=== PATIENT | male | born 1965 | race Caucasian/White ===

== ENCOUNTER 2016-10-01 13:54 | Emergency (ER) | payer OTHER ==
--- NOTE | 2016-10-01 14:35 | REP ---
LEFT ANKLE SERIES, COMPLETE: 10/01/2016 CLINICAL HISTORY: Trauma. Rolled ankle yesterday. No prior studies available. FINDINGS: Four views show soft tissue swelling anterolateral left ankle. There is soft tissue swelling on the lateral view anterior to the ankle with a small spur on the tibial plafond on the lateral view. The ankle mortise joint is symmetric and preserved with no talar dome osteochondral defect. Tiny spurs at the inferior margin of the medial malleolus and medial talar margin of the mortise joint. Subtalar joints are intact. No heel spurs. Talonavicular and calcaneocuboid joints are intact. At the lateral margin of the distal tibia, there is a tiny lucent vertical line that may be representing a nondisplaced cortical fracture of that bone seen on the mortise view and the medial oblique which rotates that posterior margin of the tibia peripherally. I do not see other acute bony finding suggested. IMPRESSION: 1. Soft tissue swelling anterolateral aspect of the ankle and a question of a nondisplaced avulsion off the peripheral margin of the lateral aspect of the distal tibia. Please see arrows I placed on the images. The mortise joint is intact. No other significant finding. Signed by Carrillo Ryan MD 10/01/2016 04:47 P
--- NOTE | 2016-10-01 14:57 | EDDOCDS ---
Physician Documentation [facility] Name: Jake Ward Age: 51 yrs Sex: Male : 1965 Arrival Date: 10/01/2016 Time: 13:54 Bed Triage 1 Private MD: NO PRIMARY PHYSICIAN, . Disposition: 10/01/16 14:44 Discharged to Home/Self Care. Impression: Nondisplaced fracture of lateral condyle of left tibia. - Condition is Stable. - Discharge Instructions: Crutch Use, Dcyx-en-Ycyg, Stirrup Ankle Brace, Dqkc-gz-Bkeu, Ankle Fracture, Xzot-vl-Uvzb. - Medication Reconciliation, Local Pharmacy Hours form. - Follow up: Orthopaedics, [facility]; When: Call to arrange an appointment; Reason: Further diagnostic work-up, Recheck today's complaints, Continuance of care. - Problem is new. - Symptoms are unchanged. Historical: - Allergies: no known allergies; - Home Meds: 1. none - PMHx: none; - PSHx: none; - Social history: Smoking status: Patient uses tobacco products, current every day smoker. No barriers to communication noted, The patient speaks fluent Swedish. - Family history: Not pertinent. - : The pt / caregiver states he / she is not on anticoagulants. Home medication list is obtained from the patient. - Exposure Risk Screening:: None identified. Vital Signs: 10/01 13:55 BP 147 / 87; Pulse 74; Resp 18; Temp 98.7; Pulse Ox 100% ; Weight 81.65 kg / 180.01 elp lbs; Height 6 ft. 1 in. (185.42 cm); Pain 7/10; 13:55 Body Mass Index 23.75 (81.65 kg, 185.42 cm) elp MDM: 14:04 Ankle, Complete Ordered. EDMS 14:42 Apply Air Cast to Patient. ordered. btw 14:43 Financial registration complete. lg Signatures: Dispatcher [employer] EDMS Suri Gambino, Lyle Reg lg Ivonne Hardin, RN RN Jackson Manley PA PA btw Conner, Teresa, RN RN ttb The chart was reviewed and I authenticate all verbal orders and agree with the evaluation and treatment provided.Corrections: (The following items were deleted from the chart) 14:45 14:42 Crutches ordered. btw jb5 MTDD
--- NOTE | 2016-10-01 14:57 | EDDOCDS ---
Nurse's Notes [facility] Name: Jake Ward Age: 51 yrs Sex: Male : 1965 Arrival Date: 10/01/2016 Time: 13:54 Bed Triage 1 Private MD: NO PRIMARY PHYSICIAN, . Diagnosis: Nondisplaced fracture of lateral condyle of left tibia Presentation: 10/01 13:59 Presenting complaint: Patient states: approx 1730 yesterday moving trusses on ice, jjr slipped rolling left ankle and trusses fell on top of ankle. The patients lower extremity appears normal on examination. Adult Sepsis Screening: The patient does not have new or worsening altered mentation. Patient's respiratory rate is less than 22. Systolic blood pressure is greater than 100. Patient has a qSOFA score of 0- Negative Sepsis Screen. Suicide/Homicide risk assessment- the patient denies having any suicidal and/or homicidal ideations and does not present with any other emotional, behavioral or mental health complaints. Status: Patient is not a sales service route manager or dependent. Transition of care: patient was not received from another setting of care. 13:59 Acuity: WILMA Level 4 jjr 13:59 Method Of Arrival: Walkin/Carried/Asstd jjr Triage Assessment: 14:00 General: Appears in no apparent distress. Pain: Location: left lateral ankle. HIV jjr screening NA for this visit Offered previously. Musculoskeletal: No deformity noted Reports pain in left lateral ankle. Historical: - Allergies: no known allergies; - Home Meds: 1. none - PMHx: none; - PSHx: none; - Social history: Smoking status: Patient uses tobacco products, current every day smoker. No barriers to communication noted, The patient speaks fluent Indonesian. - Family history: Not pertinent. - : The pt / caregiver states he / she is not on anticoagulants. Home medication list is obtained from the patient. - Exposure Risk Screening:: None identified. Screenin:45 Screening information is obtained from the patient. Fall risk: No risks identified. ttb Assistance ADL's: requires no assistance with activities of daily living. Abuse/DV Screen: The patient / caregiver reports he/she is: not in a situation that causes fear, pain or injury. Nutritional screening: No deficits noted. Advance Directives: Currently, there is no health care proxy. home support is adequate. Assessment: 14:45 General: Appears in no apparent distress, well nourished, well groomed, Behavior is ttb appropriate for age, cooperative, pleasant. Pain: Location: left leg and left lateral ankle. Neurological: Level of Consciousness is awake, alert. Cardiovascular: Chest pain is denied. Respiratory: No deficits noted. Airway is patent. Derm: Skin is normal. Musculoskeletal: Capillary refill is brisk Signs and Symptoms of Compartment Syndrome: no signs of compartment syndrome Reports pain in left lateral ankle. 14:45 General: pt states he does not need crutches : has 3 pairs at home. Air cast placed per ttb orders.. 14:50 General: pt refused WC to car. . ttb Vital Signs: 13:55 BP 147 / 87; Pulse 74; Resp 18; Temp 98.7; Pulse Ox 100% ; Weight 81.65 kg; Height 6 elp ft. 1 in. (185.42 cm); Pain 7/10; 13:55 Body Mass Index 23.75 (81.65 kg, 185.42 cm) [facility] Vitals: 13:55 Log In Time: October 01, 2016 at 13:52. [facility] ED Course: 13:55 Patient visited by Rowena Solomon PCA. elp 13:55 NO PRIMARY PHYSICIAN, . is Private Physician. elp 13:55 Patient visited by Rowena Solomon PCA. elp 13:55 Patient moved to Waiting elp 13:55 Patient moved to Pre RCE elp 14:00 Triage Initiated jjr 14:16 Patient moved to Triage 1 ttb 14:28 [facility] btw 14:28 Varun Wilder MD is Attending Physician. btw 14:33 Patient visited by Jackson Davies PA. btw 14:42 [facility]. btw 14:45 The patient / caregiver is instructed regarding the plan of care and ED course. Patient ttb has correct armband on for positive identification. 14:45 Air Cast put on Left ankle. jb5 14:45 No IV's were initiated during this patient's visit. No procedures done that require ttb assistance. Patient's left ankleelevated and ice pack applied. Air stirrup applied to left ankle Patient with positive distal sensation and brisk distal capillary refill after application. 14:46 Patient visited by Brittaney Scanlon PCA. jb5 14:49 Ankle, Complete Returned. EDMS Order Results: Radiology Order: Ankle, Complete Test: Ankle, Complete REASON FOR EXAMINATION: Trauma; LEFT ANKLE SERIES, COMPLETE: 10/01/2016; ; CLINICAL HISTORY: Trauma. Rolled ankle yesterday.; ; No prior studies available.; ; FINDINGS: Four views show soft tissue swelling anterolateral left ankle. There; is soft tissue swelling on the lateral view anterior to the ankle with a small; spur on the tibial plafond on the lateral view. The ankle mortise joint is; symmetric and preserved with no talar dome osteochondral defect. Tiny spurs at; the inferior margin of the medial malleolus and medial talar margin of the; mortise joint. Subtalar joints are intact. No heel spurs. Talonavicular and; calcaneocuboid joints are intact.; ; At the lateral margin of the distal tibia, there is a tiny lucent vertical line; that may be representing a nondisplaced cortical fracture of that bone seen on; the mortise view and the medial oblique which rotates that posterior margin of; the tibia peripherally. I do not see other acute bony finding suggested.; ; IMPRESSION:; Soft tissue swelling anterolateral aspect of the ankle and a question of a; nondisplaced avulsion off the peripheral margin of the lateral aspect of the; distal tibia. Please see arrows I placed on the images. The mortise joint is; intact. No other significant finding.; ; ; ; ; Unreviewed; Outcome: 14:44 Discharge ordered by Provider. btw 14:45 Discharge Assessment: Patient awake, alert and oriented x 3. No cognitive and/or ttb functional deficits noted. Patient verbalized understanding of disposition instructions. Patient awake and alert. patient administered narcotics - no. The following High Risk Discharge criteria are identified: None. Discharged to home ambulatory, via wheelchair. Condition: good Condition: stable Condition: improved. Discharge instructions given to patient, Instructed on discharge instructions, follow up and referral plans. medication usage, Rest, Ice, Compression and Elevation. Demonstrated understanding of instructions, crutch walking, medications, RICE Pt was receptive of discharge instructions/ teaching. No special radiology studies were completed. Property sent home with patient. 14:57 Patient left the ED. ttb Signatures: Dispatcher [employer] EDMS ScanlonBrittaney, HORSE SHOW MANAGER HORSE SHOW MANAGER jb5 Ivonne Hardin, RN RN Jackson Manley PA PA btw Conner, Teresa, RN RN ttb Neha, Rowena, HORSE SHOW MANAGER HORSE SHOW MANAGER elp MTDD
--- NOTE | 2016-10-03 15:57 | EDDOCDS ---
Physician Documentation [facility] Name: Jake Ward Age: 51 yrs Sex: Male : 1965 Arrival Date: 10/01/2016 Time: 13:54 Bed Triage 1 Private MD: NO PRIMARY PHYSICIAN, . Disposition: 10/01/16 14:44 Discharged to Home/Self Care. Impression: Nondisplaced fracture of lateral condyle of left tibia. - Condition is Stable. - Discharge Instructions: Crutch Use, Jxxy-zt-Lxrf, Stirrup Ankle Brace, Tpvr-cg-Lhaf, Ankle Fracture, Mzmz-gu-Hwmo. - Medication Reconciliation, Local Pharmacy Hours form. - Follow up: Orthopaedics, [facility]; When: Call to arrange an appointment; Reason: Further diagnostic work-up, Recheck today's complaints, Continuance of care. - Problem is new. - Symptoms are unchanged. Historical: - Allergies: no known allergies; - Home Meds: 1. none - PMHx: none; - PSHx: none; - Social history: Smoking status: Patient uses tobacco products, current every day smoker. No barriers to communication noted, The patient speaks fluent Malay. - Family history: Not pertinent. - : The pt / caregiver states he / she is not on anticoagulants. Home medication list is obtained from the patient. - Exposure Risk Screening:: None identified. Vital Signs: 10/01 13:55 BP 147 / 87; Pulse 74; Resp 18; Temp 98.7; Pulse Ox 100% ; Weight 81.65 kg / 180.01 elp lbs; Height 6 ft. 1 in. (185.42 cm); Pain 7/10; 13:55 Body Mass Index 23.75 (81.65 kg, 185.42 cm) elp MDM: 14:04 Ankle, Complete Ordered. EDMS 14:42 Apply Air Cast to Patient. ordered. btw 14:43 Financial registration complete. lg 15:07 [facility] Payment Agreement was scanned into [employer] and attached to record. lg 10/02 09:18 T-Sheet-- Draft Copy was scanned into [employer] and attached to record. mm15 Signatures: Dispatcher [employer] EDSuri Shine, Lyle Alvarenga lg Ivonne Hardin RN RN jjr WolfendenJackson PA PA btw Conner, Teresa, RN RN ttb Demar Eaton mm15 The chart was reviewed and I authenticate all verbal orders and agree with the evaluation and treatment provided.Corrections: (The following items were deleted from the chart) 10/01 14:45 14:42 Crutches ordered. anibal jb5 Attachments: 15:07 [facility] Payment Agreement lg 10/02 09:18 T-Sheet-- Draft Copy mm15 Chart Complete MTDD
--- NOTE | 2016-10-03 15:57 | EDDOCDS ---
Physician Documentation [facility] Name: Jake Ward Age: 51 yrs Sex: Male : 1965 Arrival Date: 10/01/2016 Time: 13:54 Bed Triage 1 Private MD: NO PRIMARY PHYSICIAN, . Disposition: 10/01/16 14:44 Discharged to Home/Self Care. Impression: Nondisplaced fracture of lateral condyle of left tibia. - Condition is Stable. - Discharge Instructions: Crutch Use, Eyzy-ig-Rslz, Stirrup Ankle Brace, Wpdr-mz-Rvod, Ankle Fracture, Hzrl-bw-Usvr. - Medication Reconciliation, Local Pharmacy Hours form. - Follow up: Orthopaedics, [facility]; When: Call to arrange an appointment; Reason: Further diagnostic work-up, Recheck today's complaints, Continuance of care. - Problem is new. - Symptoms are unchanged. Historical: - Allergies: no known allergies; - Home Meds: 1. none - PMHx: none; - PSHx: none; - Social history: Smoking status: Patient uses tobacco products, current every day smoker. No barriers to communication noted, The patient speaks fluent Slovenian. - Family history: Not pertinent. - : The pt / caregiver states he / she is not on anticoagulants. Home medication list is obtained from the patient. - Exposure Risk Screening:: None identified. Vital Signs: 10/01 13:55 BP 147 / 87; Pulse 74; Resp 18; Temp 98.7; Pulse Ox 100% ; Weight 81.65 kg / 180.01 elp lbs; Height 6 ft. 1 in. (185.42 cm); Pain 7/10; 13:55 Body Mass Index 23.75 (81.65 kg, 185.42 cm) elp MDM: 14:04 Ankle, Complete Ordered. EDMS 14:42 Apply Air Cast to Patient. ordered. btw 14:43 Financial registration complete. lg 15:07 [facility] Payment Agreement was scanned into [employer] and attached to record. lg 10/02 09:18 T-Sheet-- Draft Copy was scanned into [employer] and attached to record. mm15 Signatures: Dispatcher [employer] EDSuri Shine, Lyle Alvarenga lg Ivonne Hardin RN RN jjr WolfendenJackson PA PA btw Conner, Teresa, RN RN ttb Demar Eaton mm15 The chart was reviewed and I authenticate all verbal orders and agree with the evaluation and treatment provided.Corrections: (The following items were deleted from the chart) 10/01 14:45 14:42 Crutches ordered. anibal jb5 Attachments: 15:07 [facility] Payment Agreement lg 10/02 09:18 T-Sheet-- Draft Copy mm15 Chart Complete MTDD
--- NOTE | 2016-10-03 15:57 | EDDOCDS ---
Nurse's Notes [facility] Name: Jake Ward Age: 51 yrs Sex: Male : 1965 Arrival Date: 10/01/2016 Time: 13:54 Bed Triage 1 Private MD: NO PRIMARY PHYSICIAN, . Diagnosis: Nondisplaced fracture of lateral condyle of left tibia Presentation: 10/01 13:59 Presenting complaint: Patient states: approx 1730 yesterday moving trusses on ice, jjr slipped rolling left ankle and trusses fell on top of ankle. The patients lower extremity appears normal on examination. Adult Sepsis Screening: The patient does not have new or worsening altered mentation. Patient's respiratory rate is less than 22. Systolic blood pressure is greater than 100. Patient has a qSOFA score of 0- Negative Sepsis Screen. Suicide/Homicide risk assessment- the patient denies having any suicidal and/or homicidal ideations and does not present with any other emotional, behavioral or mental health complaints. Status: Patient is not a service counter cashier or dependent. Transition of care: patient was not received from another setting of care. 13:59 Acuity: WILMA Level 4 jjr 13:59 Method Of Arrival: Walkin/Carried/Asstd jjr Triage Assessment: 14:00 General: Appears in no apparent distress. Pain: Location: left lateral ankle. HIV jjr screening NA for this visit Offered previously. Musculoskeletal: No deformity noted Reports pain in left lateral ankle. Historical: - Allergies: no known allergies; - Home Meds: 1. none - PMHx: none; - PSHx: none; - Social history: Smoking status: Patient uses tobacco products, current every day smoker. No barriers to communication noted, The patient speaks fluent Persian. - Family history: Not pertinent. - : The pt / caregiver states he / she is not on anticoagulants. Home medication list is obtained from the patient. - Exposure Risk Screening:: None identified. Screenin:45 Screening information is obtained from the patient. Fall risk: No risks identified. ttb Assistance ADL's: requires no assistance with activities of daily living. Abuse/DV Screen: The patient / caregiver reports he/she is: not in a situation that causes fear, pain or injury. Nutritional screening: No deficits noted. Advance Directives: Currently, there is no health care proxy. home support is adequate. Assessment: 14:45 General: Appears in no apparent distress, well nourished, well groomed, Behavior is ttb appropriate for age, cooperative, pleasant. Pain: Location: left leg and left lateral ankle. Neurological: Level of Consciousness is awake, alert. Cardiovascular: Chest pain is denied. Respiratory: No deficits noted. Airway is patent. Derm: Skin is normal. Musculoskeletal: Capillary refill is brisk Signs and Symptoms of Compartment Syndrome: no signs of compartment syndrome Reports pain in left lateral ankle. 14:45 General: pt states he does not need crutches : has 3 pairs at home. Air cast placed per ttb orders.. 14:50 General: pt refused WC to car. . ttb Vital Signs: 13:55 BP 147 / 87; Pulse 74; Resp 18; Temp 98.7; Pulse Ox 100% ; Weight 81.65 kg; Height 6 elp ft. 1 in. (185.42 cm); Pain 7/10; 13:55 Body Mass Index 23.75 (81.65 kg, 185.42 cm) [facility] Vitals: 13:55 Log In Time: October 01, 2016 at 13:52. [facility] ED Course: 13:55 Patient visited by Rowena Solomon PCA. elp 13:55 NO PRIMARY PHYSICIAN, . is Private Physician. elp 13:55 Patient visited by Rowena Solomon PCA. elp 13:55 Patient moved to Waiting elp 13:55 Patient moved to Pre RCE elp 14:00 Triage Initiated jjr 14:16 Patient moved to Triage 1 ttb 14:28 Jackson [facility]. btw 14:28 Varun Wilder MD is Attending Physician. btw 14:33 Patient visited by Jackson Davies PA. btw 14:[facility] btw 14:45 The patient / caregiver is instructed regarding the plan of care and ED course. Patient ttb has correct armband on for positive identification. 14:45 Air Cast put on Left ankle. jb5 14:45 No IV's were initiated during this patient's visit. No procedures done that require ttb assistance. Patient's left ankleelevated and ice pack applied. Air stirrup applied to left ankle Patient with positive distal sensation and brisk distal capillary refill after application. 14:46 Patient visited by Brittaney Scanlon PCA. jb5 14:49 Ankle, Complete Returned. EDMS 15:06 Patient name changed from Jake\Vitor\\S\Ed\S\ to Jake\Vitor\Alfredo\S\Ed. EDMS 15:07 [facility] Payment Agreement was scanned into [employer] and attached to record. 10/02 09:18 T-Sheet-- Draft Copy was scanned into [employer] and attached to record. mm15 Order Results: Radiology Order: Ankle, Complete Test: Ankle, Complete REASON FOR EXAMINATION: Trauma; LEFT ANKLE SERIES, COMPLETE: 10/01/2016; ; CLINICAL HISTORY: Trauma. Rolled ankle yesterday.; ; No prior studies available.; ; FINDINGS: Four views show soft tissue swelling anterolateral left ankle. There; is soft tissue swelling on the lateral view anterior to the ankle with a small; spur on the tibial plafond on the lateral view. The ankle mortise joint is; symmetric and preserved with no talar dome osteochondral defect. Tiny spurs at; the inferior margin of the medial malleolus and medial talar margin of the; mortise joint. Subtalar joints are intact. No heel spurs. Talonavicular and; calcaneocuboid joints are intact.; ; At the lateral margin of the distal tibia, there is a tiny lucent vertical line; that may be representing a nondisplaced cortical fracture of that bone seen on; the mortise view and the medial oblique which rotates that posterior margin of; the tibia peripherally. I do not see other acute bony finding suggested.; ; IMPRESSION:; ; 1. Soft tissue swelling anterolateral aspect of the ankle and a question of a; nondisplaced avulsion off the peripheral margin of the lateral aspect of the; distal tibia. Please see arrows I placed on the images. The mortise joint is; intact. No other significant finding.; ; ; Signed by; Carrillo Ryan MD 10/01/2016 04:47 P; Outcome: 10/01 14:44 Discharge ordered by Provider. btw 14:45 Discharge Assessment: Patient awake, alert and oriented x 3. No cognitive and/or ttb functional deficits noted. Patient verbalized understanding of disposition instructions. Patient awake and alert. patient administered narcotics - no. The following High Risk Discharge criteria are identified: None. Discharged to home ambulatory, via wheelchair. Condition: good Condition: stable Condition: improved. Discharge instructions given to patient, Instructed on discharge instructions, follow up and referral plans. medication usage, Rest, Ice, Compression and Elevation. Demonstrated understanding of instructions, crutch walking, medications, RICE Pt was receptive of discharge instructions/ teaching. No special radiology studies were completed. Property sent home with patient. 14:57 Patient left the ED. ttb Signatures: Dispatcher [employer] EDMS Suri Gambino, Reg Reg lg Brittaney Scanlon, SALESPERSON FLOOR COVERINGS SALESPERSON FLOOR COVERINGS jb5 Ivonne Hardin, RN RN Jackson Manley PA PA btw Conner, Teresa, RN RN ttb Demar Eaton mm15 Rowena Solomon, SALESPERSON FLOOR COVERINGS SALESPERSON FLOOR COVERINGS elp Chart Complete MTDD
== END 2016-10-01 14:57 | disposition home or self-care (01) ==
LOC: M ED 13:54
DX: S82.125A Nondisplaced fracture of lateral condyle of left tibia, initial encounter for closed fracture (principal); W01.0XXA Fall on same level from slipping, tripping and stumbling without subsequent striking against object, initial encounter; Y92.89 Other specified places as the place of occurrence of the external cause; Y93.89 Activity, other specified; Y99.0 Civilian activity done for income or pay; F17.210 Nicotine dependence, cigarettes, uncomplicated

== ENCOUNTER 2017-04-04 13:58 | Emergency (ER) | payer OTHER, SELFPAY ==
[~2017-04-04] VITALS: Ht 185.4 cm; Wt 79.5 kg
[2017-04-04 13:58] VITALS: BP 155/85
[2017-04-04 17:24] LABS: BASO # 0.1 K/mm3 (0.0-0.2); BASO % 1.2 % (0.0-1.0); EOS # 0.2 K/mm3 (0.0-0.50); EOS % 3.3 % (0.0-3.0); LARGE UNSTAINED CELL # 0.2 K/mm3 (0.0-0.4); MEAN CORPUSCULAR HEMOGLOBIN 33.3 pg (27.0-33.0); MEAN CORPUSCULAR HGB CONC 34.8 g/dl (32.0-36.5); MEAN CORPUSCULAR VOLUME 95.9 fl (80.0-96.0); MONO # 0.5 K/mm3 (0.0-0.8); MONO % 6.9 % (0.0-5.0); NEUTROPHILS # 4.6 K/mm3 (1.8-7.7); NEUTROPHILS % 60.6 % (36.0-66.0); PLATELET COUNT, AUTOMATED 133 k/mm3 (150-450); RED CELL DISTRIBUTION WIDTH 12.6 % (11.5-14.5); WHITE BLOOD COUNT 7.6 K/mm3 (4.0-10.0)
--- NOTE | 2017-04-04 17:36 | REP ---
UNILATERAL LEFT RIBS, PA CHEST, FIVE VIEWS: HISTORY: Tenderness. COMPARISON: 11/05/2004. The lungs are clear. The heart is normal in size. The pulmonary vasculature is normal in appearance. The bony structure is intact. IMPRESSION: No acute disease. Signed by Binu Silva MD 04/04/2017 06:18 P
[2017-04-04 17:48] LABS: ALBUMIN 4.4 GM/DL (3.2-5.2); ALBUMIN/GLOBULIN RATIO 1.47 (1.00-1.93); ALKALINE PHOSPHATASE 70 U/L (45-117); ALT/SGPT 38 U/L (12-78); ANION GAP 8 MEQ/L (8-16); AST/SGOT 29 U/L (15-37); BILIRUBIN,DIRECT 0.3 MG/DL (0.0-0.2); BILIRUBIN,TOTAL 0.8 MG/DL (0.2-1.0); BLOOD UREA NITROGEN 6 MG/DL (7-18); CALCIUM LEVEL 9.1 MG/DL (8.5-10.1); CARBON DIOXIDE LEVEL 28 MEQ/L (21-32); CHLORIDE LEVEL 106 MEQ/L (98-107); CREATININE FOR GFR 0.82 MG/DL (0.70-1.30); GLOMERULAR FILTRATION RATE > 60.0 (>60); GLUCOSE, FASTING 91 MG/DL (70-105); POTASSIUM SERUM 4.3 MEQ/L (3.5-5.1); SODIUM LEVEL 142 MEQ/L (136-145); TOTAL PROTEIN 7.4 GM/DL (6.4-8.2)
--- NOTE | 2017-04-05 10:34 | ECGEPIP ---
Stationary ECG Study [facility] - ED Test Date: 2017-04-04 Pat Name: ANDRA ALCALA Department: Room: - Gender: M Crate Icer: : 1965 Requested By: DELILAH Gutierrez Order Number: [id number] Reading MD: Tricia Shetty Measurements Intervals [place] Rate: 59 P: 63 [place]: 168 QRS: 26 QRSD: 94 T: 29 QT: 426 QTc: 423 Interpretive Statements SINUS BRADYCARDIA NO PRIOR FOR COMPARISON Electronically Signed On 04-05-2017 10:34:29 EDT by Tricia Shetty
== END 2017-04-04 18:43 | disposition home or self-care (01) ==
LOC: M ED 13:58
DX: R07.81 Pleurodynia (principal); Z72.0 Tobacco use

== ENCOUNTER → 2019-02-21 | Outpatient (CLI) | payer SELFPAY | LOC: M OUTALCOH 08:27 | PROVIDERS: ATTEND Psychiatry & Neurology Psychiatry | DX: F10.10 Alcohol abuse, uncomplicated (principal) ==

== ENCOUNTER 2019-03-27 14:54 | Outpatient (RCR) | payer SELFPAY | END 2019-03-28 | LOC: M OUTALCOH 14:54 | PROVIDERS: ATTEND Psychiatry & Neurology Psychiatry | DX: F10.10 Alcohol abuse, uncomplicated (principal) ==

== ENCOUNTER 2019-04-17 14:51 | Outpatient (RCR) | payer SELFPAY | END 2019-04-28 | LOC: M OUTALCOH 14:51 | PROVIDERS: ATTEND Psychiatry & Neurology Psychiatry | DX: F10.20 Alcohol dependence, uncomplicated (principal) ==

== ENCOUNTER → 2019-05-28 | Outpatient (RCR) | payer SELFPAY | LOC: M OUTALCOH 05-01 14:51 | PROVIDERS: ATTEND Psychiatry & Neurology Psychiatry | DX: F10.20 Alcohol dependence, uncomplicated (principal) ==

== ENCOUNTER 2019-06-25 16:00 | Outpatient (RCR) | payer SELFPAY | END 2019-06-28 | LOC: M OUTALCOH 16:00 | PROVIDERS: ATTEND Psychiatry & Neurology Psychiatry | DX: F10.20 Alcohol dependence, uncomplicated (principal) | CPT/HCPCS: 90832; H0050 ==

== ENCOUNTER 2019-07-02 10:55 | Outpatient (RCR) | payer SELFPAY | END 2019-07-28 | LOC: M OUTALCOH 10:55 | PROVIDERS: ATTEND Psychiatry & Neurology Psychiatry | DX: F10.20 Alcohol dependence, uncomplicated (principal) ==

== ENCOUNTER → 2023-07-19 | Outpatient (CLI) | payer OTHER | LOC: M RAD 10:25 | PROVIDERS: ATTEND Family Medicine | DX: Z12.2 Encounter for screening for malignant neoplasm of respiratory organs (principal); F17.210 Nicotine dependence, cigarettes, uncomplicated; J44.9 Chronic obstructive pulmonary disease, unspecified; J47.9 Bronchiectasis, uncomplicated; R91.8 Other nonspecific abnormal finding of lung field ==

== ENCOUNTER → 2023-10-04 | Outpatient (REF) | LOC: M PLAIMG 10:30 | PROVIDERS: ATTEND Internal Medicine | DX: R52 Pain, unspecified (principal) ==

== ENCOUNTER 2025-01-14 11:50 | Day surgery (SDC) | payer OTHER ==
[~2025-01-14] VITALS: Ht 185.4 cm; Wt 94.7 kg
[~2025-01-14 11:50] MED LIST: ALBU8.5H INH; AMLO1TAB24 PO; LOSA100T46 PO; LR 1,000 ML IV SCH; METO1TAB32 PO; ROSU20TA86 PO; TREL1AER INH
[2025-01-14] MEDS: CYCLOPENTOLATE 1% OPHTH SOLN 2ML BTL OS SCH (12:25)
[2025-01-14] MEDS: TETRACAINE 0.5% OPHTH SOLN 4ML OS SCH (12:25)
[2025-01-14] MEDS: PHENYLEPHRINE 2.5% OPHTH SOL 2ML OS SCH (12:25)
[2025-01-14] MEDS: FLURBIPROFEN 0.03% OPHTH SOLN 2.5 ML OS SCH (12:25)
[2025-01-14] MEDS ORDERED: fentaNYL 100 MCG/2 ML INJECTION As Ordered ONE (13:18)
[2025-01-14] MEDS ORDERED: MIDAZOLAM INJ 2MG/2ML VIAL As Ordered ONE (13:18)
[2025-01-14] MEDS: LIDOCAINE 1% SDV 5ML VIAL As Ordered ONE (13:58)
[2025-01-14] MEDS: CEFUROXIME 1MG/0.1ML INTRACAMERAL INJ As Ordered ONE (13:59)
[2025-01-14 14:21] VITALS: BP 157/80; TEMP 98.7; O2SAT 96
== END 2025-01-14 14:41 | disposition home or self-care (01) ==
LOC: M SDC 11:50
PROVIDERS: ATTEND Ophthalmology
DX: H25.12 Age-related nuclear cataract, left eye (principal); I10 Essential (primary) hypertension; E78.00 Pure hypercholesterolemia, unspecified; J44.89 Other specified chronic obstructive pulmonary disease; F17.210 Nicotine dependence, cigarettes, uncomplicated; Z79.899 Other long term (current) drug therapy; Z79.51 Long term (current) use of inhaled steroids
CPT/HCPCS: 66984; J0697; J2250; J3010; V2632

== ENCOUNTER 2025-06-23 23:00 | Inpatient (IN) | payer OTHER ==
[~2025-06-23] VITALS: Ht 182.9 cm; Wt 93.9 kg
[~2025-06-23 23:00] MED LIST changes: -LR 1,000 ML IV SCH
[2025-06-23] MEDS: MIDAZOLAM INJ 2 MG/2 ML VIAL IV STA (23:24)
[2025-06-23 23:43] LABS: VENOUS BASE EXCESS -2.6 (-2.0-2.0); VENOUS HCO3 21.9 MMOL/L (23.0-27.0); VENOUS O2 SATURATION 83.0 % (60.0-80.0); VENOUS PARTIAL PRESSURE CO2 37.2 mmHg (38.0-50.0); VENOUS PARTIAL PRESSURE O2 49.1 mmHg (30.0-50.0); VENOUS PH 7.387 UNITS (7.330-7.430); VENOUS STANDARD HCO3 22.0 MMOL/L; VENOUS TOTAL CO2 23.0 MMOL/L (24.0-28.0)
[2025-06-23 23:53] LABS: ETHYL ALCOHOL (ETHANOL) 0.150 % (0.000-0.010)
[2025-06-23] MEDS: THIAMINE 200MG 2ML VIAL IV ONE (23:53)
[2025-06-23 23:57] LABS: FREE T4 1.01 NG/DL (0.89-1.76)
[2025-06-23 23:58] LABS: ALT/SGPT 46 U/L (7.0-40); AST/SGOT 56 U/L (<34); CALCIUM LEVEL 8.1 MG/DL (8.5-10.1); CARBON DIOXIDE LEVEL 22 MMOL/L (20-31); CHLORIDE LEVEL 101 MMOL/L (98-107); CREATININE FOR GFR 0.99 MG/DL (0.70-1.30); GLOMERULAR FILTRATION RATE 88.3 (>56); MAGNESIUM LEVEL 1.9 MG/DL (1.8-2.4); POTASSIUM SERUM 4.0 MMOL/L (3.5-5.1); SODIUM LEVEL 131 MMOL/L (136-145)
[2025-06-23] MEDS: levETIRAcetam INJection 1,000 MG in IV 1 EA IV ONE (23:59)
[2025-06-24 00:01] LABS: AMPHETAMINES LEVEL URINE NEGATIVE (NEGATIVE); BARBITURATES URINE NEGATIVE (NEGATIVE); BENZODIAZEPINES URINE NEGATIVE (NEGATIVE); CANNABINOIDS URINE NEGATIVE (NEGATIVE); COCAINE METABOLITE URINE NEGATIVE (NEGATIVE); METHADONE URINE NEGATIVE (NEGATIVE); OPIATES URINE NEGATIVE (NEGATIVE); PHENCYCLIDINE URINE NEGATIVE (NEGATIVE)
[2025-06-24 00:07] LABS: INR 1.1
[2025-06-24 00:13] LABS: BASO # 0.0 10^3/uL (0.0-0.2); BASO % 0.8 % (0.0-1.0); EOS # 0.1 10^3/uL (0.0-0.5); EOS % 1.9 % (0.0-3.0); LYMPH # 2.2 10^3/uL (1.5-5.0); LYMPH % 41.7 % (24.0-44.0); MONO # 0.6 10^3/uL (0.0-0.8); MONO % 11.5 % (2.0-8.0); NEUTROPHILS # 2.3 10^3/uL (1.5-8.5); NEUTROPHILS % 43.9 % (36.0-66.0); PLATELET COUNT, AUTOMATED 104 10^3/uL (150-450)
[2025-06-24] MEDS ORDERED: ISOVUE-370 76% 100 ML VIAL As Ordered ONE (00:47)
[2025-06-24] MEDS: OXAZEPAM 15MG CAP PO ONE (00:49)
[2025-06-24] MEDS: ASPIRIN 81 MG CHEWABLE TABLET PO ONE (00:49)
[2025-06-24] MEDS: MIDAZOLAM INJ 2 MG/2 ML VIAL IV ONE (00:50)
[2025-06-24] MEDS ORDERED: ACETAMINOPHEN 325 MG TAB PO PRN (01:50)
[2025-06-24] MEDS ORDERED: ATORVASTATIN 20 MG TAB PO SCH (01:50)
[2025-06-24] MEDS ORDERED: HOME MED LIST COMPLETE! XX SCH (06:10)
[2025-06-24] MEDS: MULTIVITAMINS/MINERALS THERAP 1 TAB PO SCH (08:19)
[2025-06-24] MEDS: THIAMINE 100 MG TAB PO SCH (08:19)
[2025-06-24] MEDS: CLOPIDOGREL 75 MG TAB PO SCH (08:19)
[2025-06-24] MEDS: FOLIC ACID 1 MG TAB PO SCH (08:19)
[2025-06-24] MEDS: DOCUSATE SODIUM 100 MG CAPSULE PO SCH (08:19)
[2025-06-24] MEDS: ROSUVASTATIN 10 MG TAB PO SCH (08:19)
[2025-06-24] MEDS: ASPIRIN 81 MG ENTERIC TABLET PO SCH (08:19)
[2025-06-24] MEDS: ENOXAPARIN 40 MG/0.4 ML SYRINGE (J1650 PER 10MG) SC SCH (08:39)
[2025-06-24 10:23] LABS: CALCIUM LEVEL 9.2 MG/DL (8.5-10.1); CARBON DIOXIDE LEVEL 27 MMOL/L (20-31); CHLORIDE LEVEL 105 MMOL/L (98-107); CREATININE FOR GFR 0.91 MG/DL (0.70-1.30); GLOMERULAR FILTRATION RATE > 90.0 (>56); POTASSIUM SERUM 4.2 MMOL/L (3.5-5.1); SODIUM LEVEL 137 MMOL/L (136-145)
[2025-06-24 15:45] VITALS: BP 124/68; TEMP 97.2; O2SAT 98
[2025-06-24 16:09] VITALS: BP 122/68
[2025-06-24 20:02] VITALS: BP 130/72; TEMP 97.2; O2SAT 96
[2025-06-24] MEDS: ADVAIR HFA 115/21 MCG INHALER INH SCH (20:13)
[2025-06-24] MEDS ORDERED: ADVAIR HFA 45/21 MCG INHALER INH SCH (21:00)
[2025-06-24 22:00] VITALS: BP 130/72
[2025-06-25] VITALS (7 sets, daily range): BP systolic 125–132; BP diastolic 66–72; TEMP 96.8–97.7; O2SAT 97–98
[2025-06-25 06:53] LABS: PLATELET COUNT, AUTOMATED 98 10^3/uL (150-450)
[2025-06-25 07:09] LABS: ALT/SGPT 45 U/L (7.0-40); AST/SGOT 55 U/L (<34); CALCIUM LEVEL 10.0 MG/DL (8.5-10.1); CARBON DIOXIDE LEVEL 26 MMOL/L (20-31); CHLORIDE LEVEL 105 MMOL/L (98-107); CREATININE FOR GFR 0.94 MG/DL (0.70-1.30); GLOMERULAR FILTRATION RATE > 90.0 (>56); MAGNESIUM LEVEL 1.8 MG/DL (1.8-2.4); POTASSIUM SERUM 3.9 MMOL/L (3.5-5.1); SODIUM LEVEL 138 MMOL/L (136-145)
[2025-06-25] MEDS: TIOTROPIUM BROM 2.5MCG/ACTUATION 4GM INH INH SCH (08:02)
[2025-06-25] MEDS: ROSUVASTATIN 10 MG TAB PO SCH (08:47)
[2025-06-25] MEDS ORDERED: ALBUTEROL 90 MCG/ACT 8 GM HFA INHALER INH PRN (13:05)
[2025-06-25 13:42] LABS: ESTIMATED AVERAGE GLUCOSE 105.0 MG/DL (60-110)
[2025-06-25 13:54] LABS: CHOLESTEROL LEVEL 107.0 MG/DL (<200); CHOLESTEROL RISK RATIO 2.94 (<5); LDL CHOLESTEROL 52.9 MG/DL (<100); NON-HDL-C 70.7 MG/DL; TRIGLYCERIDES LEVEL 89.0 MG/DL (<150)
[2025-06-25] MEDS: amLODIPine 5 MG TAB PO SCH (15:17)
[2025-06-25] MEDS: METOPROLOL SUCC. 25 MG *XL* TAB PO SCH (15:17)
[2025-06-25] MEDS ORDERED: CLOP75TA2 PO (17:05)
[2025-06-25] MEDS ORDERED: THIA100TA PO (17:05)
[2025-06-25] MEDS ORDERED: ATOR80TA59 PO (17:05)
[2025-06-25] MEDS ORDERED: KEPP250T5 PO (17:05)
[2025-06-25] MEDS ORDERED: ASPI81TAEC PO (17:05)
[2025-06-25] MEDS ORDERED: ADVAIR HFA 115/21 MCG INHALER INH SCH (20:00)
[2025-06-26] MEDS ORDERED: ATORVASTATIN 20 MG TAB PO SCH (09:00)
== END 2025-06-25 19:24 | disposition home or self-care (01) | DRG 45 ==
LOC: M ED 23:00 → M ED INP 06-24 01:49 → M MSPAV 06-24 15:47
PROVIDERS: ADMIT Internal Medicine; ATTEND Internal Medicine
DX: I63.531 Cerebral infarction due to unspecified occlusion or stenosis of right posterior cerebral artery (principal); I10 Essential (primary) hypertension; F10.10 Alcohol abuse, uncomplicated; J44.9 Chronic obstructive pulmonary disease, unspecified; R25.1 Tremor, unspecified; E78.5 Hyperlipidemia, unspecified; I65.21 Occlusion and stenosis of right carotid artery; Z79.899 Other long term (current) drug therapy